=== PATIENT | female | born 1995 | race Caucasian/White ===

== ENCOUNTER 2017-08-21 02:36 | Emergency (ER) | payer BC, OTHER ==
[2017-08-21 02:47] VITALS: TEMP 36.4
[2017-08-21] MEDS ORDERED: CLINDAMYCIN 150MG HOME PACK PO ONE (03:15)
[2017-08-21 03:59] VITALS: BP 105/66; PULSE 84; O2SAT 95
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
[2017-08-21] MEDS ORDERED: CLIN150C PO (04:25)
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
== END 2017-08-21 04:30 | disposition home or self-care (01) ==
LOC: C.EDB 02:38 → C.EDA 04:30
DX: S09.90XA Unspecified injury of head, initial encounter (principal); S09.93XA Unspecified injury of face, initial encounter; W22.8XXA Striking against or struck by other objects, initial encounter